=== PATIENT | male | born 1980 | race Caucasian/White ===

== ENCOUNTER 2021-11-06 10:44 | Day surgery (SDC) | payer BC ==
[~2021-11-06] VITALS: Ht 177 cm; Wt 109.9 kg
[2021-11-06] VITALS (8 sets, daily range): BP systolic 93–126; BP diastolic 59–82
[2021-11-06] MEDS ORDERED: morphine INJ 10 MG/ML 1ML (SYR OR VIAL) IV STA (10:57)
[2021-11-06] MEDS ORDERED: ASPIRIN 81 MG CHEW (CHILDREN'S ASA) PO ONE (11:00)
[2021-11-06 11:05] LABS: BASOPHILS % (AUTO) 1 % (0-10); EOSINOPHILS # (AUTO) 0.1 10^3/uL (0.0-0.3); EOSINOPHILS % (AUTO) 1 % (0-10); HEMATOCRIT 42 % (40-54); HEMOGLOBIN 14.8 g/dL (13.3-17.7); LYMPHOCYTES # (AUTO) 2.7 10^3/uL (1.0-4.0); LYMPHOCYTES % (AUTO) 32 % (12-44); MEAN CORPUSCULAR HEMOGLOBIN 29 pg (25-34); MEAN CORPUSCULAR HGB CONC 35 g/dL (32-36); MEAN CORPUSCULAR VOLUME 83 fL (80-99); MEAN PLATELET VOLUME 10.4 fL (9.0-12.2); MONOCYTES # (AUTO) 0.9 10^3/uL (0.0-1.0); MONOCYTES % (AUTO) 10 % (0-12); NEUTROPHILS # (AUTO) 4.6 10^3/uL (1.8-7.8); NEUTROPHILS % (AUTO) 55 % (42-75); PLATELET COUNT 362 10^3/uL (130-400); WHITE BLOOD COUNT 8.3 10^3/uL (4.3-11.0)
--- NOTE | 2021-11-06 11:05 | ED Chest Pain ---
General Chief Complaint: Chest Pain Stated Complaint: CHEST PAIN - COUGH - SOA Source: patient Exam Limitations: no limitations History of Present Illness Date Seen by Provider: Nov 06, 2021 Time Seen by Provider: 10:45 Initial Comments Patient to the ER by private conveyance from work with chief complaint he has been having some chest pain since yesterday evening. He finally got to sleep after having a hard cough and his pain went away around midnight. He was then awoken at 3 AM with the same chest pain substernal feeling like pressure 5 out of 10. Not made worse with deep breaths, direct palpation or movement. No injury. No history of coronary disease or primary familial history of coronary disease. He does have a history of hyperlipidemia but denies hypertension or diabetes, smoking or recreational drugs. He states his father had hypertension and hyperlipidemia. He feels little clammy and sweaty and off today. No body aches or fever. He does take some medications for GERD. Allergies and Home Medications Allergies Coded Allergies: No Known Drug Allergies (Unverified , 11/06/21) Patient Home Medication List Home Medication List Reviewed: Yes Review of Systems Review of Systems Constitutional: No chills; dizziness; No fever, No malaise EENTM: No Blurred Vision, No Double Vision Respiratory: Cough; Denies Shortness of Air Cardiovascular: Chest Pain, Lightheadedness Gastrointestinal: Denies Constipated, Denies Diarrhea, Denies Nausea Genitourinary: Denies Burning, Denies Discharge Musculoskeletal: No back pain, No joint pain All Other Systems Reviewed Negative Unless Noted: Yes Past Epwtruh-Piwmii-Jfvccv Hx Patient Social History Tobacco Use?: No Use of E-Cig and/or Vaping dev: No Substance use?: No Physical Exam Vital Signs Vital Signs - First Documented 11/06/21 10:48 Temp 36.1 Pulse 51 Resp 17 B/P (MAP) 144/92 (109) Pulse Ox 99 Capillary Refill : Height, Weight, BMI Height: '" Weight: lbs. oz. kg; BMI Method: General Appearance: WD/WN, Anxious, Mild Distress HEENT: PERRL/EOMI, TMs Normal, Pharynx Normal, Moist Mucous Membranes Neck: Full Range of Motion, Normal Inspection Respiratory: Chest Non Tender, Lungs Clear, Normal Breath Sounds, No Accessory Muscle Use, No Respiratory Distress Cardiovascular: Regular Rate, Rhythm, No Edema, Normal Peripheral Pulses Gastrointestinal: Normal Bowel Sounds, Non Tender, Soft Extremity: Normal Capillary Refill, Normal Inspection, No Pedal Edema Neurologic/Psychiatric: Alert, Oriented x3 Skin: Normal Color, Warm/Dry Progress/Results/Core Measures Results/Orders Lab Results Laboratory Tests Test 11/06/21 10:50 11/06/21 11:10 11/06/21 13:00 Range/Units White Blood Count 8.3 4.3-11.0 10^3/uL Red Blood Count 5.08 4.30-5.52 10^6/uL Hemoglobin 14.8 13.3-17.7 g/dL Hematocrit 42 40-54 % Mean Corpuscular Volume 83 80-99 fL Mean Corpuscular Hemoglobin 29 25-34 pg Mean Corpuscular Hemoglobin Concent 35 32-36 g/dL Red Cell Distribution Width 13.2 10.0-14.5 % Platelet Count 362 130-400 10^3/uL Mean Platelet Volume 10.4 9.0-12.2 fL Immature Granulocyte % (Auto) 0 % Neutrophils (%) (Auto) 55 42-75 % Lymphocytes (%) (Auto) 32 12-44 % Monocytes (%) (Auto) 10 0-12 % Eosinophils (%) (Auto) 1 0-10 % Basophils (%) (Auto) 1 0-10 % Neutrophils # (Auto) 4.6 1.8-7.8 10^3/uL Lymphocytes # (Auto) 2.7 1.0-4.0 10^3/uL Monocytes # (Auto) 0.9 0.0-1.0 10^3/uL Eosinophils # (Auto) 0.1 0.0-0.3 10^3/uL Basophils # (Auto) 0.0 0.0-0.1 10^3/uL Immature Granulocyte # (Auto) 0.0 0.0-0.1 10^3/uL Prothrombin Time 12.8 12.2-14.7 SEC INR Comment 0.9 0.8-1.4 Activated Partial Thromboplast Time 27 24-35 SEC Sodium Level 139 135-145 MMOL/L Potassium Level 3.8 3.6-5.0 MMOL/L Chloride Level 103 98-107 MMOL/L Carbon Dioxide Level 26 21-32 MMOL/L Anion Gap 10 5-14 MMOL/L Blood Urea Nitrogen 15 7-18 MG/DL Creatinine 1.09 0.60-1.30 MG/DL Estimat Glomerular Filtration Rate 87 BUN/Creatinine Ratio 14 Glucose Level 102 70-105 MG/DL Calcium Level 9.5 8.5-10.1 MG/DL Corrected Calcium 8.5-10.1 MG/DL Magnesium Level 2.0 1.6-2.4 MG/DL Total Bilirubin 0.6 0.1-1.0 MG/DL Aspartate Amino Transf (AST/SGOT) 32 5-34 U/L Alanine Aminotransferase (ALT/SGPT) 36 0-55 U/L Alkaline Phosphatase 46 40-136 U/L Myoglobin 448.7 H 10.0-92.0 NG/ML Troponin I 0.396 *H 1.246 *H <0.028 NG/ML B-Type Natriuretic Peptide 10.0 <100.0 PG/ML Total Protein 7.4 6.4-8.2 GM/DL Albumin 4.7 H 3.2-4.5 GM/DL Lipase 22 8-78 U/L Influenza Type A (RT-PCR) Not Detected Not Detecte Influenza Type B (RT-PCR) Not Detected Not Detecte SARS-CoV-2 RNA (RT-PCR) Not Detected Not Detecte My Orders Orders - AN MEDINA Cbc With Automated Diff (11/06/21 10:57) Magnesium (11/06/21 10:57) Chest 1 View, Ap/Pa Only (11/06/21 10:57) Ekg Tracing (11/06/21 10:57) Comprehensive Metabolic Panel (11/06/21 10:57) Myoglobin Serum (11/06/21 10:57) Protime With Inr (11/06/21 10:57) Partial Thromboplastin Time (11/06/21 10:57) O2 (11/06/21 10:57) Monitor-Rhythm Ecg Trace Only (11/06/21 10:57) Lipid Panel (11/07/21 06:00) Ed Iv/Invasive Line Start (11/06/21 10:57) Lipase (11/06/21 10:57) Bnp Shelli (11/06/21 10:57) Troponin I Shelli (11/06/21 10:57) Aspirin Chewable Tablet (Baby Aspirin Ch (11/06/21 11:00) Morphine Injection (Morphine Injection (11/06/21 10:57) Covid 19 Inhouse Test (11/06/21 11:17) Influenza A And B By Pcr (11/06/21 11:17) Enoxaparin Injection (Lovenox Injection) (11/06/21 11:45) Enoxaparin Injection (Lovenox Injection) (11/06/21 11:45) Troponin I Shelli (11/06/21 12:53) Medications Given in ED Current Medications Medications Dose Ordered Sig/Caitlin Route Start Time Stop Time Status Last Admin Dose Admin Aspirin 324 mg ONCE ONCE PO 11/06/21 11:00 11/06/21 11:01 DC 11/06/21 11:08 324 MG Enoxaparin Sodium 50 mg ONCE ONCE SC 11/06/21 11:45 11/06/21 11:46 DC 11/06/21 13:12 50 MG Enoxaparin Sodium 60 mg ONCE ONCE SC 11/06/21 11:45 11/06/21 11:46 DC 11/06/21 13:11 60 MG Vital Signs/I&O 11/06/21 10:48 Temp 36.1 Pulse 51 Resp 17 B/P (MAP) 144/92 (109) Pulse Ox 99 Progress Progress Note #1: Time: 11:03 Progress Note Systolic blood pressure 114. Plan to get a COVID swab, give 2 mg morphine and aspirin. EKG shows nondescriptive half milliliters elevation of the ST segment in V1. No other clinically relevant ST changes. Progress Note #2: Time: 11:50 Progress Note Initiated Lovenox and left a message with Dr. Lockwood. We did offer another round of morphine as the patient states he did not get much pain relief. He says he is okay at this time still rates his pain as a 5 out of 10. Progress Note #3: Time: 12:[address] Lockwood to the ER, visit with the patient and wants to repeat a troponin. If it is elevated he would take the patient to the [facility]. If it is not then he would do a stress test. Plan will be to go home after this intervention. Delta troponin time now. Progress Note #4: Time: 13:16 Progress Note Left message for Dr. Lockwood [phone]. Dr. Lockwood down to the ER at 1300 and recommends we repeat a troponin. If the troponin is going down then he would take the patient to stress test. He would then send the patient home. If the troponin is elevating then he would take the patient straight to [facility]. Initial ECG Impression Date: Nov 06, 2021 Initial ECG Impression Time: 10:51 Initial ECG Rate: 51 Initial ECG Rhythm: Normal Sinus Initial ECG Intervals: Normal Initial ECG Impression: Normal, Nonspecific Changes Comment Normal sinus rhythm without clinically relevant ST changes. Half a block of ST elevation in V1 isolated without any reciprocal ST depression. Diagnostic Imaging Diagonstic Imaging: Xray Plain Films/CT/US/NM/MRI: chest Comments [facility]. [place], [place] NAME: WENCLAUDIA J MED REC#: [id number] PT STATUS: REG ER : 1980 PHYSICIAN: AN MEDINA MD ADMIT DATE: 11/06/21/ER Draft Date of Exam:11/06/21 CHEST 1 VIEW, AP/PA ONLY INDICATION: Chest pain Single AP view of chest is obtained. COMPARISON: No previous study is available for comparison at this time. FINDINGS: Heart size and pulmonary vasculature are within normal limits, and the lungs are clear, bilaterally. IMPRESSION: Unremarkable chest. Dictated on workstation # [id number] Dict: 11/06/21 1139 Trans: 11/06/21 1144 CV [id number] Interpreted by: JOSE COCHRAN MD Electronically signed by: Reviewed: Reviewed by Me Departure Communication (Admissions) Time/Spoke to Admitting Phy: 14:22 1145: Left message for Dr Lockwood. Dr. Lockwood saw the patient in the ER. After a delta troponin went up he elected to take the patient to the [facility] Impression Primary Impression: Non-STEMI (non-ST elevated myocardial infarction) Disposition: ADMITTED INPATIENT Condition: Stable Admissions Decision to Admit Reason: Admit from ER (General) Decision to Admit/Date: Nov 06, 2021 Time/Decision to Admit Time: 11:44 Departure-Patient Inst. Referrals: JOVITA JAMESON MD (PCP/Family) Primary Care Physician AN MEDINA Nov 06, 2021 11:05
[2021-11-06 11:19] LABS: INR 0.9 (0.8-1.4); PROTHROMBIN TIME PATIENT 12.8 SEC (12.2-14.7)
[2021-11-06 11:20] LABS: ALBUMIN 4.7 GM/DL (3.2-4.5); CHLORIDE 103 MMOL/L (98-107); POTASSIUM 3.8 MMOL/L (3.6-5.0); SODIUM 139 MMOL/L (135-145)
[2021-11-06 11:21] LABS: CALCIUM 9.5 MG/DL (8.5-10.1)
[2021-11-06 11:22] LABS: GLUCOSE 102 MG/DL (70-105); TOTAL PROTEIN 7.4 GM/DL (6.4-8.2)
[2021-11-06 11:23] LABS: CARBON DIOXIDE 26 MMOL/L (21-32)
[2021-11-06 11:24] LABS: BILIRUBIN,TOTAL 0.6 MG/DL (0.1-1.0)
[2021-11-06 11:26] LABS: ALKALINE PHOSPHATASE 46 U/L (40-136); CREATININE SERUM 1.09 MG/DL (0.60-1.30); GFR ESTIMATED 87
[2021-11-06 11:27] LABS: BUN/CREATININE RATIO 14
[2021-11-06 11:29] LABS: ALANINE AMINOTRANSFERASE 36 U/L (0-55); LIPASE 22 U/L (8-78)
--- NOTE | 2021-11-06 11:44 | Diagnostic Imaging Report ---
INDICATION: Chest pain Single AP view of chest is obtained. COMPARISON: No previous study is available for comparison at this time. FINDINGS: Heart size and pulmonary vasculature are within normal limits, and the lungs are clear, bilaterally. IMPRESSION: Unremarkable chest. Dictated by: Dictated on workstation # [id number]
[2021-11-06] MEDS ORDERED: ENOXAPARIN 60 MG/0.6 ML (LOVENOX) SYR SC ONE ×2 (11:45)
--- NOTE | 2021-11-06 13:02 | Consultation-Cardiology ---
HPI-Cardiology Cardiology Consultation Date of Consultation 11/06/21 Date of Admission Time Seen by Provider: 12:55 Indication: Chest pain, NSTEMI HPI Patient is a 41 y/o male with history of HLP, family history of CAD, DM, presented to the ER with complaints of intermittent chest pain over the last 2 weeks, becoming more persistent over the past 48 hours. Describes it as subster nal chest pressure, not worsened by cough, movement or deep inspiration. Denies any shortness of breath or syncope. Patient appears anxious at the time. Home Medications & Allergies Allergies: Coded Allergies: No Known Drug Allergies (Unverified , 11/06/21) Home Medication List Reviewed: Yes HZQ-Ianlng-Fxryuo Hx Patient Social History Smoking Status: Never a Smoker Have you traveled recently?: No Past Medical History HTN, HLP, borderline DM Family Medical History Significant Family History: CAD Over 55 Years Old Review of Systems-General Review of Systems Constitutional: No chills; dizziness; No fever, No malaise EENTM: see HPI, no symptoms reported Respiratory: see HPI, cough Cardiovascular: see HPI, chest pain; No edema, No Hx of Intervention, No syncope, No vascular heart diseas Gastrointestinal: No abdominal pain Genitourinary: no symptoms reported, see HPI Musculoskeletal: No back pain, No joint pain All Other Systems Reviewed Negative Unless Noted: Yes Reviewed Test Results Reviewed Test Results Lab Laboratory Tests 11/06/21 10:50: White Blood Count 8.3, Red Blood Count 5.08, Hemoglobin 14.8, Hematocrit 42, Mean Corpuscular Volume 83, Mean Corpuscular Hemoglobin 29, Mean Corpuscular Hemoglobin Concent 35, Red Cell Distribution Width 13.2, Platelet Count 362, Mean Platelet Volume 10.4, Immature Granulocyte % (Auto) 0, Neutrophils (%) (Auto) 55, Lymphocytes (%) (Auto) 32, Monocytes (%) (Auto) 10, Eosinophils (%) (Auto) 1, Basophils (%) (Auto) 1, Neutrophils # (Auto) 4.6, Lymphocytes # (Auto) 2.7, Monocytes # (Auto) 0.9, Eosinophils # (Auto) 0.1, Basophils # (Auto) 0.0, Immature Granulocyte # (Auto) 0.0, Prothrombin Time 12.8, INR Comment 0.9, Activated Partial Thromboplast Time 27, Sodium Level 139, Potassium Level 3.8, Chloride Level 103, Carbon Dioxide Level 26, Anion Gap 10, Blood Urea Nitrogen 15, Creatinine 1.09, Estimat Glomerular Filtration Rate 87, BUN/Creatinine Ratio 14, Glucose Level 102, Calcium Level 9.5, Corrected Calcium , Magnesium Level 2.0, Total Bilirubin 0.6, Aspartate Amino Transf (AST/SGOT) 32, Alanine Aminotransferase (ALT/SGPT) 36, Alkaline Phosphatase 46, Myoglobin 448.7H, Troponin I 0.396*H, B-Type Natriuretic Peptide 10.0, Total Protein 7.4, Albumin 4.7H, Lipase 22 11/06/21 11:10: Influenza Type A (RT-PCR) Not Detected, Influenza Type B (RT-PCR) Not Detected, SARS-CoV-2 RNA (RT-PCR) Not Detected ECG Impression ECG Initial ECG Rhythm: S.Cliff Physical Exam Physical Exam Vital Signs Vital Signs - First Documented 11/06/21 10:48 Temp 36.1 Pulse 51 Resp 17 B/P (MAP) 144/92 (109) Pulse Ox 99 Capillary Refill : Less Than 3 Seconds Height, Weight, BMI Height: '" Weight: lbs. oz. kg; 35.00 BMI Method: General Appearance: WD/WN, Anxious, Mild Distress HEENT: PERRL/EOMI, TMs Normal, Pharynx Normal, Moist Mucous Membranes Neck: Full Range of Motion, Normal Inspection Respiratory: Chest Non Tender, Lungs Clear, Normal Breath Sounds, No Accessory Muscle Use, No Respiratory Distress Cardiovascular: Regular Rate, Rhythm, No Edema, Normal Peripheral Pulses Gastrointestinal: Normal Bowel Sounds, Non Tender, Soft Extremity: Normal Capillary Refill, Normal Inspection, No Pedal Edema Neurologic/Psychiatric: Alert, Oriented x3 Skin: Normal Color, Warm/Dry A/P-Cardiology Admission Diagnosis Chest pain NSTEMI HTN HLP Assessment/Plan Chest pain, NSTEMI, EKG showing sinus cliff with no acute ST changes, initial troponin mildly elevated. I will repeat troponin, if continued to be elevated, will proceed with cardiac catheterization. HTN, continue to monitor. HLP, reports on statin as outpatient, I will evaluate lipid iel Family hx of CAD Obesity Thank you for allowing us to participate in the management of Mr. Oseguera. This is Madison Griggs PA-C, as a scribe for Dr. Lockwood. Patient was seen and evaluated with Lula Wallace interviewed and examined the patient, he was not having any active chest pain during the interview EKG review showed minimal nondiagnostic changes. Troponin was elevated, repeat troponin was more significantly elevated We decided to proceed with urgent cardiac catheterization possible PTCA. MADISON LACKEY Nov 06, 2021 13:02 JEANETH LOCKWOOD MD Nov 06, 2021 14:26
[2021-11-06] MEDS ORDERED: VERAPAMIL 5 MG/2 ML (CALAN) VIAL IV ONE (13:53)
[2021-11-06] MEDS ORDERED: MIDAZOLAM 5 MG/5 ML (VERSED) VIAL ONE (13:54)
[2021-11-06] MEDS ORDERED: HEParin 1000 UNIT/ML (10ML VIAL) FOR BOLUS ONE (13:54)
[2021-11-06] MEDS ORDERED: fentaNYL INJ 100 MCG/2 ML AMP ONE (13:54)
[2021-11-06] MEDS ORDERED: NITRO DRIP 25000 MCG/D5W 0 ML IV ONE (13:54)
[2021-11-06] MEDS ORDERED: LIDOCAINE 1% INJ 20 ML VIAL ONE (13:58)
[2021-11-06] MEDS ORDERED: NS IV 1000 ML 1,000 ML ONE (13:59)
[2021-11-06] MEDS ORDERED: HEParin (CATH LAB) 2,000 ML IV ONE (13:59)
--- NOTE | 2021-11-06 14:26 | Cardiac Procedure Note-CS/ASA ---
Pre-Procedure Note Pre-Op Procedure Note Date of Available H&P: Nov 06, 2021 Date H&P Reviewed: Nov 06, 2021 Time H&P Reviewed: 14:26 History & Physical: H&P Reviewed, Patient Examed, No changes noted Pre-Operative Diagnosis: Non-ST elevation myocardial infarction Conscious Sedation Pre-Proced Time 14:26 ASA Score 3 For ASA 3 and 4: Consider anesthesia and medical clearance. Also, for patients with a history of failed moderate sedation consider anesthesia. Airway Lungs Heart ASA score ASA 1: a normal healthy patient ASA 2: a patient with a mild systemic disease (mid diabetes, controlled hypertension, obesity x ASA 3: a patient with a severe systemic disease that limits activity (angina, COPD, prior Myocardial infarction) ASA 4: a patient with an incapacitating disease that is a constant threat to life (CHF, renal failure) ASA 5: a moribund patient not expected to survive 24 hrs. (ruptured aneurysm) ASA 6: a declared brain- patient whose organs are being harvested. For emergent operations, add the letter E after the classification Mallampati Classification Grade 3 Sedation Plan Analgesia, Amnesia, Plan communicated to team members, Discussed options with patient/fam, Discussed risks with patient/fam The patient is an appropriate candidate to undergo the planned procedure, sedation, and anesthesia. The patient immediately re-assessed prior to indication. JEANETH TRAN MD Nov 06, 2021 14:26
[2021-11-06] MEDS ORDERED: EPTIFIBATIDE BOLUS 20 ML IV ONE (14:58)
[2021-11-06] MEDS ORDERED: ATROPINE INJECTION 1 MG/10 ML SYR (ABBOTT) ONE (15:07)
[2021-11-06] MEDS ORDERED: TICAGRELOR 90 MG TABLET (BRILINTA) PO ONE (15:29)
--- NOTE | 2021-11-06 15:43 | Cardiac Cath Report ---
Cardiac Cath Report Physician (s)/Field Support Engineer (s) Physician JEANETH TRAN MD Pre-Procedure Diagnosis Pre-Procedure Diagnosis: Non-ST elevation myocardial infarction Post-Procedure Note Procedure Start Date: Nov 06, 2021 Name of Procedure: Left heart catheterization Emergency stenting of the right coronary artery IFR to the LAD Findings/Procedure Note PROCEDURE NOTE: 41 years old gentleman with no known previous history admitted with acute chest pain, had mild elevation in troponin, repeat troponin in the emergency room showed significant elevation he was having active chest pain. Patient deemed having non-ST elevation myocardial infarction and emergency cardiac catheterization was recommended. After explaining the procedure to the patient, all pros and cons were explained, all questions were answered. The patient signed the consent and then he was placed on the cardiac catheterization laboratory. Groin was prepped SL fashion local anesthesia was used. Sheath placed in the right femoral artery. Jeet right and left catheter were used to access the coronary system. Pigtail was used to access the left ventricular cavity. Left ventriculogram was done Patient received 5000 units of heparin, double bolus of Integrilin. Patient has total occlusion of the right coronary artery, I used Jeet right guide, advanced a BMW wire and parked it in the distal LAD then proceeded with balloon dilatation using 3 x 20 mm balloon Reestablish flow, there was heavy thrombus burden. I proceeded with deployment of 3.5 x 28 mm stent expanded to 3.6 mm in the distal right coronary artery down to the bifurcation. Angiogram showed excellent results. Patient had 2 lesions in the LAD, I used EBU guide and did IFR to the first l esion and it was 0.94 and the second lesion 0.90 then pullback showed improvement. At the end of the procedure the sheath was removed. Closure device was deployed FINDINGS: Hemodynamics LV 117/16, end-diastolic pressure of 16 Aorta 94/66 mean of 82 ANATOMY: Left Main is free of obstructive disease Left Anterior Descending is moderate in size with 50% stenosis at the mid LAD and 50% stenosis distally, IFR on the mid lesion was 0.94 and the distal lesion 0.90. Left Circumflex is moderate in size with no obstructive disease Right Coronary Artery is large dominant artery, occluded at the midportion successful emergency balloon angioplasty and stenting using nory point 3.5 x 28 mm expanded to 3.6 mm LV Gram was done showing prominent left ventricle with hypokinesia of the inferior wall, ejection fraction 40% CONCLUSION: 1. Acute myocardial infarction with occlusion of the right coronary artery, successful emergency angioplasty and stenting using nory point stent 3.5 x 28 mm expanded to 3.6 mm with excellent results 2. 50% stenosis at the mid and distal LAD with IFR in the mid lesion 0.94 and distal lesion 0.90 3. Mild disease in the circumflex artery nonobstructive disease 4. Normal left ventricular size with hypokinesia of the inferior wall, ejection fraction 40% DISCUSSION AND RECOMMENDATION: Patient was started on aspirin, Brilinta, Lipitor 80 mg and Lopressor, planning to add SAMUEL inhibitor if his blood pressure permits Anesthesia Type: Conscious Sedation Estimated blood loss (mL): 35 ml Contrast Amount: 134 ml Total Radiation Dose: 1562 mGy Post-Procedure Diagnosis Post-operative diagnosis: Acute non-ST elevation myocardial infarction Acute congestive heart failure left ventricular systolic dysfunction, ischemic cardiomyopathy Chest pain Hyperlipidemia JEANETH TRAN MD Nov 06, 2021 15:43
[2021-11-06] MEDS ORDERED: PATIENT MAY USE OWN MEDS, ALL PO SCH (15:45)
[2021-11-06] MEDS: NS IV 1000 ML 1,000 ML IV SCH (16:47)
[2021-11-06] MEDS: PANTOPRAZOLE 40 MG (PROTONIX) TAB PO SCH (16:47)
[2021-11-06] MEDS ORDERED: NITROGLYCERIN 0.4 MG SL TABS BTL 25'S SL PRN (18:45)
[2021-11-06] MEDS: TICAGRELOR 90 MG TABLET (BRILINTA) PO SCH (20:54)
[2021-11-06] MEDS: meTOprolol TARTRATE 25 MG (LOPRESSOR) TABLET PO SCH (20:54)
[2021-11-07] VITALS: BP 101/62
[2021-11-07] MEDS: NS IV 1000 ML 1,000 ML IV SCH (03:13)
[2021-11-07 04:00] VITALS: BP 100/68
[2021-11-07 06:42] LABS: HEMATOCRIT 39 % (40-54); HEMOGLOBIN 13.4 g/dL (13.3-17.7); MEAN CORPUSCULAR HEMOGLOBIN 29 pg (25-34); MEAN CORPUSCULAR HGB CONC 34 g/dL (32-36); MEAN CORPUSCULAR VOLUME 85 fL (80-99); MEAN PLATELET VOLUME 10.4 fL (9.0-12.2); PLATELET COUNT 272 10^3/uL (130-400); WHITE BLOOD COUNT 7.6 10^3/uL (4.3-11.0)
[2021-11-07 07:00] LABS: CHLORIDE 105 MMOL/L (98-107); POTASSIUM 3.9 MMOL/L (3.6-5.0); SODIUM 139 MMOL/L (135-145)
[2021-11-07 07:01] LABS: CALCIUM 8.9 MG/DL (8.5-10.1)
[2021-11-07 07:02] LABS: GLUCOSE 93 MG/DL (70-105); TRIGLYCERIDES 431 MG/DL (<150)
[2021-11-07 07:03] LABS: CARBON DIOXIDE 23 MMOL/L (21-32)
[2021-11-07 07:06] LABS: CREATININE SERUM 0.99 MG/DL (0.60-1.30); GFR ESTIMATED 98
[2021-11-07 07:07] LABS: BUN/CREATININE RATIO 12; CHOLESTEROL 232 MG/DL (< 200)
[2021-11-07 07:08] LABS: HDL CHOLESTEROL 28 MG/DL (40-60)
[2021-11-07 08:10] VITALS: BP 117/77
--- NOTE | 2021-11-07 08:23 | Cardiology Discharge Summary ---
Discharge Summary Hospital Course Problems Reviewed?: Yes Hospital Course Date of Admission: Nov 06, 2021 at 16:22 Admission Diagnosis : Family Physician/Provider: No,Local Physician Date of Discharge: 11/07/21 Discharge Diagnosis: [Non-ST elevation myocardial infarction Chest pain Coronary artery disease Hyperlipidemia] Hospital Course: [ Chest pain, NSTEMI, Status post emergency cardiac catheterization and stenting of a totally occluded right coronary artery with excellent results IFR to the LAD showing moderate disease Started on aspirin and Brilinta Planning for discharge today Hypertension, bradycardia, blood pressure is borderline low and bradycardic Unable to tolerate beta-blockers. Continue to monitor Hyperlipidemia, started on Lipitor 80 mg daily Family hx of CAD Obesity] Labs and Pending Lab Test: Laboratory Tests 11/06/21 10:50: White Blood Count 8.3, Red Blood Count 5.08, Hemoglobin 14.8, Hematocrit 42, Mean Corpuscular Volume 83, Mean Corpuscular Hemoglobin 29, Mean Corpuscular Hemoglobin Concent 35, Red Cell Distribution Width 13.2, Platelet Count 362, Mean Platelet Volume 10.4, Immature Granulocyte % (Auto) 0, Neutrophils (%) (Auto) 55, Lymphocytes (%) (Auto) 32, Monocytes (%) (Auto) 10, Eosinophils (%) (Auto) 1, Basophils (%) (Auto) 1, Neutrophils # (Auto) 4.6, Lymphocytes # (Auto) 2.7, Monocytes # (Auto) 0.9, Eosinophils # (Auto) 0.1, Basophils # (Auto) 0.0, Immature Granulocyte # (Auto) 0.0, Prothrombin Time 12.8, INR Comment 0.9, Activated Partial Thromboplast Time 27, Sodium Level 139, Potassium Level 3.8, Chloride Level 103, Carbon Dioxide Level 26, Anion Gap 10, Blood Urea Nitrogen 15, Creatinine 1.09, Estimat Glomerular Filtration Rate 87, BUN/Creatinine Ratio 14, Glucose Level 102, Calcium Level 9.5, Corrected Calcium , Magnesium Level 2.0, Total Bilirubin 0.6, Aspartate Amino Transf (AST/SGOT) 32, Alanine Aminotransferase (ALT/SGPT) 36, Alkaline Phosphatase 46, Myoglobin 448.7H, Troponin I 0.396*H, B-Type Natriuretic Peptide 10.0, Total Protein 7.4, Albumin 4.7H, Lipase 22 11/06/21 11:10: Influenza Type A (RT-PCR) Not Detected, Influenza Type B (RT-PCR) Not Detected, SARS-CoV-2 RNA (RT-PCR) Not Detected 11/06/21 13:00: Troponin I 1.246*H 11/07/21 06:32: White Blood Count 7.6, Red Blood Count 4.63, Hemoglobin 13.4, Hematocrit 39L, Mean Corpuscular Volume 85, Mean Corpuscular Hemoglobin 29, Mean Corpuscular Hemoglobin Concent 34, Red Cell Distribution Width 13.5, Platelet Count 272, Mean Platelet Volume 10.4, Sodium Level 139, Potassium Level 3.9, Chloride Level 105, Carbon Dioxide Level 23, Anion Gap 11, Blood Urea Nitrogen 12, Creatinine 0.99, Estimat Glomerular Filtration Rate 98, BUN/Creatinine Ratio 12, Glucose Level 93, Calcium Level 8.9, Troponin I 11.094*H, Triglycerides Level 431H, Cholesterol Level 232H, LDL Cholesterol Direct 133H, VLDL Cholesterol , HDL Cholesterol 28L Assessment/Pt DC Instructions Non-ST elevation myocardial infarction Discharge Physical Examination Allergies: Coded Allergies: No Known Drug Allergies (Unverified , 11/06/21) General Appearance: No Apparent Distress, WD/WN HEENT: PERRL/EOMI, TMs Normal, Normal ENT Inspection, Pharynx Normal Respiratory: Chest Non Tender, Lungs Clear, Normal Breath Sounds, No Accessory Muscle Use, No Respiratory Distress Cardiovascular: Regular Rate, Rhythm, No Edema, No Gallop, No JVD, No Murmur, Normal Peripheral Pulses Gastrointestinal: Normal Bowel Sounds, No Organomegaly, No Pulsatile Mass, Non Tender Extremity: Normal Capillary Refill, Normal Inspection, Normal Range of Motion, Non Tender, No Calf Tenderness Skin: Warm/Dry Neurologic/Psychiatric: Alert, Oriented x3 Clinical Quality Measures Admission Status Admission Status: Inpatient Order (span 2 midnights) Reason for Inpatient Admission: Acute myocardial infarction AMI/AHF: Ejection Fraction: Above/Equal to 40 ASA po Prior to arrival: JEANETH Ni MD Nov 07, 2021 08:23
[2021-11-07] MEDS ORDERED: PANT40TA52 PO (08:26)
[2021-11-07] MEDS ORDERED: ASPI-1238 PO (08:26)
[2021-11-07] MEDS ORDERED: TICA90TA PO (08:26)
[2021-11-07] MEDS ORDERED: ATOR80TA76 PO (08:26)
--- NOTE | 2021-11-07 08:27 | Discharge Inst-Post CATH ---
Discharge Inst-CATH/EP Problems Reviewed?: Yes Post Cardiac Cath/EP D/C Inst Follow Up/Plan Appointment with Dr. Lockwood's office in 1 to 2 weeks <b>CARDIAC CATH/EP PROCEDURE DISCHARGE INSTRUCTIONS</b> ACTIVITY * Go Home directly and rest. * Limit activity of the leg (or wrist if it was used) for 7 days including aer obics, swimming, jogging, bicycling, etc. * Restrict stair-climbing for 7 days if possible, if not, climb up with your non-cath leg, then bring together on the same step. * Avoid lifting, pushing, pulling or excessive movement of the affected extremi ty for 7 days. * Customary sexual activity may be resumed after 2 days-use caution not to use a position that strains or causes pain to the affected extremity. * No driving for 24 hours. * NO SMOKING. * Avoid straining for bowel movements for 7 days. * Gentle walking on level ground is allowed. * Returning to work will depend on the type of procedure and the results. Your doctor will discuss this with you. CALL YOUR DOCTOR FOR ANY OF THE FOLLOWING: *If bleeding from the puncture site occurs- Apply gentle pressure to site with clean cloth and call your doctor or EMS. * If a knot or lump forms under the skin, increases in size, or causes pain. * If bruising appears to be worsening or moving further down your leg instead of disappearing. * Temperature above 101 F. CARE OF YOUR GROIN INCISION; * Bruising or purple discoloration of the skin near the puncture site is common. * You may shower only, no bathtub bathing for 5 days. Be careful to avoid slipping as your leg may feel stiff. * If a closure device was used on your femoral artery, please see the attached guide regarding care of the device and your leg. * Leave dressing on FOR 24 hours. CARE OF YOUR WRIST INCISION; * Bruising or purple discoloration of the skin near the puncture site is common. * You may shower. * DO NOT submerge wrist. * Leave dressing on FOR 24 hours. JEANETH LOCKWOOD MD Nov 07, 2021 08:27
[2021-11-07] MEDS: meTOprolol TARTRATE 25 MG (LOPRESSOR) TABLET PO SCH (08:44)
[2021-11-07] MEDS: TICAGRELOR 90 MG TABLET (BRILINTA) PO SCH (08:44)
[2021-11-07] MEDS: PANTOPRAZOLE 40 MG (PROTONIX) TAB PO SCH (08:44)
[2021-11-07] MEDS ORDERED: ASPIRIN E.C. 81 MG (ECOTRIN) TAB PO SCH (09:00)
== END 2021-11-07 09:13 | disposition home or self-care (01) ==
LOC: EDUNIT# 10:44 → ER 10:46 → SDC 13:54 → CSD 13:54 → UNDOADMIN 16:22 → CSD 16:22 → UNDODISIN 11-07 09:13 → SDC 11-07 09:13
PROVIDERS: ATTEND Internal Medicine Cardiovascular Disease
DX: I21.4 Non-ST elevation (NSTEMI) myocardial infarction (principal); I25.10 Atherosclerotic heart disease of native coronary artery without angina pectoris; I25.5 Ischemic cardiomyopathy; E78.5 Hyperlipidemia, unspecified; I11.0 Hypertensive heart disease with heart failure; I50.22 Chronic systolic (congestive) heart failure; Z79.899 Other long term (current) drug therapy
CPT/HCPCS: 71045; 80048; 80053; 80061; 83690; 83735; 83874; 83880; 84484 ×2; 85025; 85027; 85610; 85730; 87636; 93005 ×2; 93041; 93306; 93458; 93571; 99285; C1725; C1760; C1769 ×2; C1874; C1887 ×2; C1894; C9606; 36415

== ENCOUNTER 2022-09-05 14:39 | Emergency (ER) | payer BC ==
[~2022-09-05] VITALS: Ht 182 cm; Wt 107.0 kg
[~2022-09-05 14:39] MED LIST: ASPI-1238 PO; ATOR80TA76 PO; PANT40TA52 PO; TICA90TA PO
--- NOTE | 2022-09-05 14:45 | ED Chest Pain ---
General Chief Complaint: Chest Pain Stated Complaint: CHEST PAINS Source: patient Exam Limitations: no limitations History of Present Illness Date Seen by Provider: Sep 05, 2022 Time Seen by Provider: 14:45 Initial Comments Patient is a 42-year-old male who presents to the emergency department with a chief complaint of a "sticking" chest pain that also feels a little "tight". Onset approximately 2 hours prior to arrival while he was at work. 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 He complains of feeling a little nauseated a little short of breath. He is very anxious about being in the hospital. He is status post stent placement for heart attack in October of last year. He is currently on Brilinta and aspirin. He states he is compliant with his daily medications. He presents quite hypertensive with a diastolic a little over 100. He is not on any antihypertensive medications. He has not had any cardiac evaluation since the stent placement. He is not a smoker. No family history of first-degree relatives with coronary artery disease. He is not a diabetic. He is on cholesterol medication. Nothing really makes the pain any better or any worse. No recent illnesses, fevers, productive cough. No GERD like symptoms. 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: No NTG SL CUSTOMER SERVICE SUPERVISOR: No Associated Symptoms: nausea/vomiting (mild nausea), shortness of breath (mild SOB - getting better) Allergies and Home Medications Allergies Coded Allergies: No Known Drug Allergies (Unverified , 11/06/21) Patient Home Medication List Home Medication List Reviewed: Yes Aspirin (Aspirin EC) 81 Mg Tablet., 81 MG PO DAILY Prescribed by: JEANETH TRAN on 11/07/21825 Atorvastatin Calcium (Atorvastatin Calcium) 80 Mg Tablet, 80 MG PO HS Prescribed by: JEANETH TRAN on 11/07/21825 Pantoprazole Sodium (Pantoprazole Sodium) 40 Mg Tablet., 40 MG PO DAILY Prescribed by: JEANETH TRAN on 11/07/21825 Pantoprazole Sodium (Protonix) 40 Mg Tablet.dr, 40 MG PO DAILY Prescribed by: BHARATHI AGUILAR on 09/05/22 1744 Ticagrelor (Brilinta) 90 Mg Tablet, 90 MG PO BID Prescribed by: JEANETH TRAN on 11/07/21 0826 Review of Systems Review of Systems Constitutional: see HPI EENTM: No Symptoms Reported Respiratory: Shortness of Air Cardiovascular: Chest Pain Gastrointestinal: Nausea Genitourinary: No Symptoms Reported Musculoskeletal: no symptoms reported Skin: no symptoms reported Psychiatric/Neurological: Other ("shaking" (nerves)) All Other Systems Reviewed Negative Unless Noted: Yes Past Fsobbbc-Cdsxeb-Kttses Hx Past Medical History Surgery/Hospitalization HX: GERD Family Medical History CAD Over 55 Years Old Physical Exam Vital Signs Vital Signs - First Documented 09/05/22 14:40 Pulse 86 Resp 18 B/P (MAP) 177/110 (132) Pulse Ox 100 Capillary Refill : Height, Weight, BMI Height: '" Weight: lbs. oz. kg; 35.07 BMI Method: General Appearance: WD/WN, Anxious HEENT: PERRL/EOMI Neck: Normal Inspection Respiratory: Lungs Clear, Normal Breath Sounds, No Accessory Muscle Use, No Respiratory Distress Cardiovascular: Regular Rate, Rhythm, Normal Peripheral Pulses (2+ bilateral radial) Gastrointestinal: Normal Bowel Sounds, Non Tender, Soft Extremity: Normal Capillary Refill, Normal Inspection, Normal Range of Motion, Non Tender, No Calf Tenderness, No Pedal Edema Neurologic/Psychiatric: Alert, Oriented x3, No Motor/Sensory Deficits, Other (anxious/trembling) Skin: Warm/Dry, Pallor (in his face) Progress/Results/Core Measures Results/Orders Lab Results Laboratory Tests Test 09/05/22 14:47 09/05/22 14:49 09/05/22 16:47 Range/Units White Blood Count 7.6 4.3-11.0 10^3/uL Red Blood Count 4.85 4.30-5.52 10^6/uL Hemoglobin 14.9 13.3-17.7 g/dL Hematocrit 42 40-54 % Mean Corpuscular Volume 87 80-99 fL Mean Corpuscular Hemoglobin 31 25-34 pg Mean Corpuscular Hemoglobin Concent 35 32-36 g/dL Red Cell Distribution Width 12.3 10.0-14.5 % Platelet Count 281 130-400 10^3/uL Mean Platelet Volume 10.6 9.0-12.2 fL Immature Granulocyte % (Auto) 0 % Neutrophils (%) (Auto) 67 42-75 % Lymphocytes (%) (Auto) 25 12-44 % Monocytes (%) (Auto) 7 0-12 % Eosinophils (%) (Auto) 1 0-10 % Basophils (%) (Auto) 0 0-10 % Neutrophils # (Auto) 5.1 1.8-7.8 10^3/uL Lymphocytes # (Auto) 1.9 1.0-4.0 10^3/uL Monocytes # (Auto) 0.5 0.0-1.0 10^3/uL Eosinophils # (Auto) 0.0 0.0-0.3 10^3/uL Basophils # (Auto) 0.0 0.0-0.1 10^3/uL Immature Granulocyte # (Auto) 0.0 0.0-0.1 10^3/uL Prothrombin Time 12.5 12.2-14.7 SEC INR Comment 0.9 0.8-1.4 Activated Partial Thromboplast Time 27 24-35 SEC Sodium Level 139 135-145 MMOL/L Potassium Level 3.5 L 3.6-5.0 MMOL/L Chloride Level 104 98-107 MMOL/L Carbon Dioxide Level 21 21-32 MMOL/L Anion Gap 14 5-14 MMOL/L Blood Urea Nitrogen 11 7-18 MG/DL Creatinine 0.89 0.60-1.30 MG/DL Estimat Glomerular Filtration Rate 110 BUN/Creatinine Ratio 12 Glucose Level 113 H 70-105 MG/DL Calcium Level 9.6 8.5-10.1 MG/DL Corrected Calcium 8.5-10.1 MG/DL Magnesium Level 1.6 1.6-2.4 MG/DL Total Bilirubin 0.7 0.1-1.0 MG/DL Aspartate Amino Transf (AST/SGOT) 32 5-34 U/L Alanine Aminotransferase (ALT/SGPT) 45 0-55 U/L Alkaline Phosphatase 62 40-136 U/L Troponin I < 0.028 < 0.028 <0.028 NG/ML Total Protein 7.6 6.4-8.2 GM/DL Albumin 5.0 H 3.2-4.5 GM/DL Glucometer 125 H 70-110 MG/DL My Orders Orders - BHARATHI AGUILAR MD Ekg Tracing (09/05/22 14:41) Cbc With Automated Diff (09/05/22 14:54) Magnesium (09/05/22 14:54) Chest 1 View, Ap/Pa Only (09/05/22 14:54) Comprehensive Metabolic Panel (09/05/22 14:54) Protime With Inr (09/05/22 14:54) Partial Thromboplastin Time (09/05/22 14:54) O2 (09/05/22 14:54) Monitor-Rhythm Ecg Trace Only (09/05/22 14:54) Lipid Panel (09/06/22 06:00) Ed Iv/Invasive Line Start (09/05/22 14:54) Troponin I Shelli (09/05/22 14:54) Aspirin Chewable Tablet (Baby Aspirin Ch (09/05/22 15:00) Ondansetron Injection (Zofran Injectio (09/05/22 15:00) Troponin I Shelli (09/05/22 16:15) Medications Given in ED Current Medications Medications Dose Ordered Sig/Caitlin Route Start Time Stop Time Status Last Admin Dose Admin Aspirin 324 mg ONCE ONCE PO 09/05/22 15:00 09/05/22 15:01 DC 09/05/22 15:09 324 MG Ondansetron HCl 4 mg ONCE ONCE IVP 09/05/22 15:00 09/05/22 15:01 DC 09/05/22 15:09 4 MG Vital Signs/I&O 09/05/22 14:40 Pulse 86 Resp 18 B/P (MAP) 177/110 (132) Pulse Ox 100 Progress Progress Note #1: Time: 15:43 Progress Note Initial cardiac work-up is reassuring. No concerning findings on EKG, negative troponin. We will repeat his troponin at 415. Progress Note #2: Time: 17:55 Progress Note Patient seen and evaluated by me. Evaluation today includes physical exam and "cardiac work-up" to include CBC, Chem-12, coag panel, troponin x2, EKG, chest x-ray. Pertinent physical exam findings well-developed well-nourished thin male acutely anxious with obvious resting tremors. Heart is regular, lungs are clear. He is slightly hypertensive at presentation. Abdomen is soft and benign. No lower extremity edema. Differential diagnosis based on history and physical exam and initial EKG, NS KINGS, ACS, GERD. Labs independently reviewed and interpreted by me. CBC is normal, chemistry is normal, troponin x2 negative/undetectable. normal EKG. Normal CXR. Patient has had stable VS throughout his stay. Pain resolved on it's own. He was eager for discharge by the time the second troponin retsulted. No concerning findings for ACS or NSTEMI. I am restarting him on Protonix and encouraged compliance. He and his verbalize understanding of the plan of care. He did tell me when I went in with D/c instructions that he had had quite a large amount of black coffee today (about 32oz). I encouraged him to decrease this. Initial ECG Impression Date: Sep 05, 2022 Initial ECG Impression Time: 14:45 Initial ECG Rate: 94 Initial ECG Rhythm: Normal Sinus Initial ECG Intervals MT 134 QRS 97 QTc 407 Comment Artifact noted at the baseline lead I and III. No overt ST segment elevation or depression. PVC noted. Diagnostic Imaging Diagonstic Imaging: Xray Plain Films/CT/US/NM/MRI: chest Comments [facility] [place], [place] NAME: WENCLAUDIA J MED REC#: [id number] PT STATUS: REG ER : 1980 PHYSICIAN: BHARATHI AGUILAR MD ADMIT DATE: 09/05/22/ER Draft Date of Exam:09/05/22 CHEST 1 VIEW, AP/PA ONLY INDICATION: Chest pain TECHNIQUE: Single view chest 3:04 PM CORRELATION STUDY: 11/06/2021 FINDINGS: The heart size, mediastinal configuration and pulmonary vascularity are within normal limits. The lungs are clear with no consolidating infiltrate. There is no significant effusion or pneumothorax. IMPRESSION: 1. Negative appearing portable chest. Dictated on workstation # [id number] Dict: 09/05/22 1517 Trans: 09/05/22 1517 DO [id number] Interpreted by: SARAN JAMES DO Electronically signed by: Departure Impression Primary Impression: Chest pain Qualified Codes: R07.9 - Chest pain, unspecified Disposition: 01 HOME, SELF-CARE Condition: Stable Departure-Patient Inst. Decision time for Depature: 17:43 Referrals: NO,LOCAL PHYSICIAN (PCP/Family) Primary Care Physician Patient Instructions: Chest Pain That Is Not Caused by the Heart (DC) Add. Discharge Instructions: Continue your daily medications as prescribed. You should restart the Protonix 40 mg tablets once daily for the next 2 weeks. 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 If you have any return of chest pain especially associated with sweating, nausea, shortness of breath please return to the emergency department for reevaluation. Scripts Pantoprazole Sodium (Protonix) 40 Mg Tablet.dr 40 MG PO DAILY for 30 Days, #30 TAB Prov: BHARATHI AGUILAR MD 09/05/22 Work/School Note: Work Release Form Date Seen in the Emergency Department: Sep 05, 2022 Return to Work: Sep 08, 2022 BHARATHI AGUILAR MD Sep 05, 2022 14:45
[2022-09-05 14:59] LABS: BASOPHILS % (AUTO) 0 % (0-10); EOSINOPHILS % (AUTO) 1 % (0-10); HEMATOCRIT 42 % (40-54); HEMOGLOBIN 14.9 g/dL (13.3-17.7); LYMPHOCYTES # (AUTO) 1.9 10^3/uL (1.0-4.0); LYMPHOCYTES % (AUTO) 25 % (12-44); MEAN CORPUSCULAR HEMOGLOBIN 31 pg (25-34); MEAN CORPUSCULAR HGB CONC 35 g/dL (32-36); MEAN CORPUSCULAR VOLUME 87 fL (80-99); MEAN PLATELET VOLUME 10.6 fL (9.0-12.2); MONOCYTES # (AUTO) 0.5 10^3/uL (0.0-1.0); MONOCYTES % (AUTO) 7 % (0-12); NEUTROPHILS # (AUTO) 5.1 10^3/uL (1.8-7.8); NEUTROPHILS % (AUTO) 67 % (42-75); PLATELET COUNT 281 10^3/uL (130-400); WHITE BLOOD COUNT 7.6 10^3/uL (4.3-11.0)
[2022-09-05] MEDS ORDERED: ASPIRIN 81 MG CHEW (CHILDREN'S ASA) PO ONE (15:00)
[2022-09-05] MEDS ORDERED: ONDANSETRON 4 MG/2 ML (SDV) Z0FRAN IVP ONE (15:00)
[2022-09-05 15:01] LABS: CHLORIDE 104 MMOL/L (98-107); POTASSIUM 3.5 MMOL/L (3.6-5.0); SODIUM 139 MMOL/L (135-145)
[2022-09-05 15:02] LABS: CALCIUM 9.6 MG/DL (8.5-10.1)
[2022-09-05 15:03] LABS: GLUCOSE 113 MG/DL (70-105); TOTAL PROTEIN 7.6 GM/DL (6.4-8.2)
[2022-09-05 15:05] LABS: BILIRUBIN,TOTAL 0.7 MG/DL (0.1-1.0); CARBON DIOXIDE 21 MMOL/L (21-32); INR 0.9 (0.8-1.4); PROTHROMBIN TIME PATIENT 12.5 SEC (12.2-14.7)
[2022-09-05 15:07] LABS: ALKALINE PHOSPHATASE 62 U/L (40-136); CREATININE SERUM 0.89 MG/DL (0.60-1.30); GFR ESTIMATED 110
[2022-09-05 15:08] LABS: BUN/CREATININE RATIO 12
[2022-09-05 15:10] LABS: ALANINE AMINOTRANSFERASE 45 U/L (0-55); MAGNESIUM 1.6 MG/DL (1.6-2.4)
--- NOTE | 2022-09-05 15:18 | Diagnostic Imaging Report ---
INDICATION: Chest pain TECHNIQUE: Single view chest 3:04 PM CORRELATION STUDY: 11/06/2021 FINDINGS: The heart size, mediastinal configuration and pulmonary vascularity are within normal limits. The lungs are clear with no consolidating infiltrate. There is no significant effusion or pneumothorax. IMPRESSION: 1. Negative appearing portable chest. Dictated by: Dictated on workstation # [id number]
[2022-09-05] MEDS ORDERED: PANT40TA2 PO (17:44)
[2022-09-05 17:55] VITALS: BP 136/83
== END 2022-09-05 17:55 | disposition home or self-care (01) ==
LOC: EDUNIT# 14:39 → ER 14:40
DX: R07.9 Chest pain, unspecified (principal); I49.3 Ventricular premature depolarization
CPT/HCPCS: 36415; 71045; 80053; 82947; 83735; 84484; 85025; 85610; 85730; 93005; 93041